=== PATIENT | male | born 1995 | race Caucasian/White ===

== ENCOUNTER 2018-01-11 19:52 | Emergency (ER) | payer BC ==
[2018-01-11 19:57] VITALS: TEMP 99.1; O2SAT 95
[2018-01-11] MEDS ORDERED: HYOSCYAMINE SULFATE 0.125 MG TAB PO ONE (20:03)
[2018-01-11] MEDS ORDERED: FAMOTIDINE 20 MG TAB PO ONE (20:03)
[2018-01-11] MEDS ORDERED: LIDOCAINE 2% VISCOUS 15 ML UDCUP PO ONE (20:03)
[2018-01-11] MEDS ORDERED: NS 1,000 ML IV ONE ×2 (20:03)
[2018-01-11] MEDS ORDERED: MAG HYDROX/AL HYDROX/SIMETH 30 ML UDCUP PO ONE (20:03)
[2018-01-11] MEDS ORDERED: ONDANSETRON 4 MG/2 ML VIAL IVP ONE (20:03)
--- NOTE | 2018-01-11 20:03 | EDPHY ---
H & P Stated Complaint: c/o n/v x 1 day Source: Patient Exam Limitations: No limitations - Medical/Surgical History Hx Asthma: No Hx Chronic Respiratory Disease: No Hx Diabetes: No Hx Cardiac Disease: No Hx Renal Disease: No Hx Cirrhosis: No Hx Alcoholism: No Hx HIV/AIDS: No Hx Splenectomy or Spleen Trauma: No Other PMH: DENIES - Social History Smoking Status: Never smoked Time Seen by Provider: 01/11/18 20:03 HPI/ROS: HPI: This is a 22-year-old male who presents with Chief Complaint: c/o n/v x 1 day Location: Epigastric Quality: Nausea vomiting Duration: 1 day Signs and Symptoms: no fever, + nausea, + vomiting, no hematemesis, no blood in stool, no abdominal bloating, no diarrhea, no back pain, no urinary symptoms, no testicular/groin pain, no indigestion, no chest pain, no shortness of breath Timing: Worse today, occurring over the last year Severity: [id number] Context: Patient is generally healthy, presents with complaints of sudden onset starting this morning of nausea and vomiting times 10 today but denies any abdominal pain, diarrhea,fever. Patient reports that he has been having "stomach issues" over the last year has been seen at work [employer] with preliminary lab work. He drinks alcohol approximately 3 to 4 times a week but only has 1 or 2 beers each day. He denies regular NSAID use. He became concerned today as last time he vomited he has some blood streaks bile colored fluid. Denies any early satiety/food intolerance/abdominal pain/diarrhea/fever/ urinary symptoms. Patient reports that almost daily he feels nauseous over the last year. Does not believe he had any food borne illness. Modifying Factors: None Comment: ROS: see HPI Constitutional: No fever, no chills, no weight loss Eyes: No blurred vision Respiratory: No shortness of breath, no cough Cardiovascular: No chest pain, no palpitations Gastrointestinal: + nausea, + vomiting, no diarrhea, no hematemesis, no blood in stool Genitourinary: No dysuria, no blood in urine Extremities: No myalgias, no edema Neurologic: No weakness, no numbness Skin: No rashes, no petechiae Hematologic: No bruising, no bleeding MEDICAL/SURGICAL/SOCIAL HISTORY: Medical history: Generally healthy. Does not take any regular medications. Surgical history: Denies Social history: Student. CONSTITUTIONAL: Extremely pleasant non toxic appearing young adult white male, awake and alert, no obvious distress HEENT: Atraumatic and normocephalic, PERRL, EOMI. Tympanic membranes clear. Oropharynx clear, no exudate and moist pink mucosa. Airway patent. No lymphadenopathy. No meningismus. Cardiovascular: Normal S1/S2, tachycardia, regular rhythm, without murmur rub or gallop. PULMONARY/CHEST: Symmetrical and nontender. Clear to auscultation bilaterally. Good air movement. No accessory muscle usage. ABDOMEN: Soft, nondistended, mild right upper quadrant tenderness to deep palpation, no rebound, no guarding, no peritoneal signs, no masses or organomegaly. No CVAT. Bowel sounds normoactive x4. EXTREMITIES: 2/2 pulses, strength 5/5, no deformities, no clubbing, no cyanosis or edema. NEUROLOGICAL: no focal neuro deficits. GCS 15. SKIN: Warm and dry, no erythema. no rash. Good capillary refill. (Sharon Quiñonez) Constitutional: Initial Vital Signs Temperature (C) 37.3 C 01/11/18 19:55 Heart Rate 121 H 01/11/18 19:55 Respiratory Rate 18 01/11/18 19:55 Blood Pressure 156/106 H 01/11/18 19:55 O2 Sat (%) 95 01/11/18 19:55 O2 Delivery Mode Room Air Allergies/Adverse Reactions: No Known Allergies Allergy (Verified 01/11/18 19:57) Home Medications: Medication Instructions Recorded Ondansetron Odt [Zofran Odt 4 mg 4 mg PO Q4 PRN #12 tab 01/11/18 (*)] Pantoprazole Sodium [Protonix 40mg 40 mg PO BID #28 tab 01/11/18 (*)] Medical Decision Making - Diagnostics Imaging Results: Imaging Impressions Abdomen Ultrasound 01/11/18 20:08 Impression: 1. Tiny benign gallbladder polyps. 2. No cholelithiasis or biliary ductal dilation. Findings and recommendations discussed with Emergency Department physician, Sharon Quiñonez PA-C at 2045 hours on January 11, 2018. Final report concurs with initial preliminary interpretation. ED Course/Re-evaluation: The patient was evaluated and managed by the physician assistant teacher. I have reviewed this chart and I agree with the findings and plan of care as documented , as indicated by my signature. I am the secondary supervising physician. ( Keerthi Suarez) Labs, IV fluids, IV medications and oral medications, right upper quadrant ultrasound ordered Patient had mild right upper quadrant tenderness to deep palpation; will evaluate for gallbladder disease Suspect peptic ulcer disease versus gastritis versus H pylori infection; will benefit from GI follow up outpatient with EGD. No concern for esophageal varices or free air/perforation. Abdominal exam is soft and nontender. Doubt surgical abdomen. Given 2 L normal saline, IV Zofran, GI cocktail, Pepcid 2045: Called by Radiology who advised that right upper quadrant ultrasound only shows 2 mm polyp. No signs of cholelithiasis/cholecystitis/ choledocholithiasis/sludge. Reassessed patient who reports that nausea has resolved. No episodes of vomiting while in the emergency room. Passed p.o. Trial prior to discharge. Patient will be discharged home with PPI/antiemetics and GI follow-up for EGD This patient was seen under the supervision of my secondary supervising physician. I evaluated care for this patient independently. (Sharon Quiñonez) Differential Diagnosis: Abdominal pain including but not limited to appendicitis, cholecystitis, gastritis and urinary tract infection. (Sharon Quiñonez) - Data Points Laboratory Results: Laboratory Results 01/11/18 20:13 01/11/18 20:13 01/11/18 01/11/18 20:13 20:13 WBC 8.90 10^3/uL 10^3/uL (3.80-9.50) RBC 5.50 10^6/uL 10^6/uL (4.40-6.38) Hgb 16.8 g/dL g/dL (13.7-17.5) Hct 47.9 % % (40.0-51.0) MCV 87.1 fL fL (81.5-99.8) MCH 30.5 pg pg (27.9-34.1) MCHC 35.1 g/dL g/dL (32.4-36.7) RDW 12.9 % % (11.5-15.2) Plt Count 256 10^3/uL 10^3/uL (150-400) MPV 8.8 fL fL (8.7-11.7) Neut % (Auto) 61.1 % % (39.3-74.2) Lymph % (Auto) 28.4 % % (15.0-45.0) [place] % (Auto) 9.2 % % (4.5-13.0) Eos % (Auto) 0.3 % L % (0.6-7.6) Baso % (Auto) 0.8 % % (0.3-1.7) Nucleat RBC Rel Count 0.0 % % (0.0-0.2) Absolute Neuts (auto) 5.43 10^3/uL 10^3/uL (1.70-6.50) Absolute Lymphs (auto) 2.53 10^3/uL 10^3/uL (1.00-3.00) Absolute Monos (auto) 0.82 10^3/uL H 10^3/uL (0.30-0.80) Absolute Eos (auto) 0.03 10^3/uL 10^3/uL (0.03-0.40) Absolute Basos (auto) 0.07 10^3/uL 10^3/uL (0.02-0.10) Absolute Nucleated RBC 0.00 10^3/uL 10^3/uL (0-0.01) Immature Gran % 0.2 % % (0.0-1.1) Immature Gran # 0.02 10^3/uL 10^3/uL (0.00-0.10) Sodium 141 mEq/L mEq/L (135-145) Potassium 4.1 mEq/L mEq/L (3.5-5.2) Chloride 104 mEq/L mEq/L (97-110) Carbon Dioxide 22 mEq/l mEq/l (22-31) Anion Gap 15 mEq/L mEq/L (8-16) BUN 10 mg/dL mg/dL (7-23) Creatinine 0.9 mg/dL mg/dL (0.7-1.3) Estimated GFR > 60 Glucose 101 mg/dL H mg/dL (70-100) Calcium 10.5 mg/dL H mg/dL (8.5-10.4) Total Bilirubin 2.0 mg/dL H mg/dL (0.1-1.4) Conjugated Bilirubin 0.5 mg/dL mg/dL (0.0-0.5) Unconjugated Bilirubin 1.5 mg/dL H mg/dL (0.0-1.1) AST 28 IU/L IU/L (17-59) ALT 40 IU/L IU/L (21-72) Alkaline Phosphatase 74 IU/L IU/L (38-126) Total Protein 8.2 g/dL g/dL (6.3-8.2) Albumin 5.1 g/dL H g/dL (3.5-5.0) Lipase 71 IU/L IU/L (23-300) Medications Given: Discontinued Medications Al Hydroxide/Mg Hydroxide (Maalox Susp) 30 ml PO ONCE ONE Stop: 01/11/18 20:04 Last Admin: 01/11/18 20:16 Dose: 30 ml Famotidine (Pepcid) 20 mg PO EDNOW ONE Stop: 01/11/18 20:04 Last Admin: 01/11/18 20:16 Dose: 20 mg Hyoscyamine Sulfate (Levsin, Hyomax-Sl) 0.25 mg PO ONCE ONE Stop: 01/11/18 20:04 Last Admin: 01/11/18 20:16 Dose: 0.25 mg Sodium Chloride (Ns) 1,000 mls @ 0 mls/hr IV EDNOW ONE; Wide Open PRN Reason: Protocol Stop: 01/11/18 20:04 Last Admin: 01/11/18 20:13 Dose: 1,000 mls Sodium Chloride (Ns) 1,000 mls @ 0 mls/hr IV EDNOW ONE; Wide Open PRN Reason: Protocol Stop: 01/11/18 20:04 Last Admin: 01/11/18 20:27 Dose: 1,000 mls Lidocaine (Lidocaine 2% Viscous) 15 ml PO ONCE ONE Stop: 01/11/18 20:04 Last Admin: 01/11/18 20:16 Dose: 15 ml Ondansetron HCl (Zofran) 4 mg IVP EDNOW ONE Stop: 01/11/18 20:04 Last Admin: 01/11/18 20:16 Dose: 4 mg Ondansetron HCl (Zofran Odt 4 Mg Prepack#2) 1 btl TAKEHOME EDNOW ONE Stop: 01/11/18 20:55 Last Admin: 01/11/18 21:02 Dose: 1 btl Departure - Departure Disposition: Home, Routine, Self-Care Clinical Impression: Peptic ulcer disease Condition: Good Instructions: Peptic Ulcer (ED), Gastritis (ED), Diet for Stomach Ulcers and Gastritis (ED) Additional Instructions: Consume a minimum of 8-10 glasses of water or electrolyte fluid replacement drinks that include Gatorade, Powerade, Pedialyte. Eat a bland diet for the next 48 hours and then slowly advance as tolerated. Take Zofran 1 tab every 4 hours as needed for nausea, vomiting. Start taking Protonix 40 mg twice daily x2 weeks and then once daily thereafter. Refrain from drinking alcohol as this can make your symptoms worse. Follow a peptic ulcer or gastritis diet. Make an appointment to follow up with Gastroenterology in the next 2-3 weeks to discuss candidacy for an EGD outpatient. Return to the Emergency Room if symptoms do not resolve in the next 48-72 hours , you spike a fever > 102 F, or experience intractable abdominal pain/nausea/ vomiting. Referrals: [facility] [Clinic] - As per Instructions Joyce Minor MD [Medical Doctor] - As per Instructions Prescriptions: Ondansetron Odt [Zofran Odt 4 mg (*)] 4 mg PO Q4 PRN #12 tab PRN Reason: Nausea/Vomiting, Use 1st Pantoprazole Sodium [Protonix 40mg (*)] 40 mg PO BID #28 tab
[2018-01-11 20:26] LABS: PLATELET COUNT 256 10^3/uL (150-400)
[2018-01-11] MEDS ORDERED: ONDANSETRON 4MG PREPACK#2 BTL TAKEHOME ONE (20:54)
[2018-01-11 21:06] VITALS: BP 131/94; PULSE 89; RESP 16
== END 2018-01-11 21:07 | disposition home or self-care (01) ==
DX: K27.9 Peptic ulcer, site unspecified, unspecified as acute or chronic, without hemorrhage or perforation (principal); E86.9 Volume depletion, unspecified
CPT/HCPCS: 96374; J2405

== ENCOUNTER → 2018-02-09 | Outpatient (CLI) | payer BC | LOC: FIMAGING 08:40 | PROVIDERS: ATTEND Physician Assistant | DX: R11.2 Nausea with vomiting, unspecified (principal); K44.9 Diaphragmatic hernia without obstruction or gangrene ==

== ENCOUNTER → 2018-02-13 | Outpatient (CLI) | payer BC | LOC: FIMAGING 07:56 | PROVIDERS: ATTEND Physician Assistant | DX: R11.2 Nausea with vomiting, unspecified (principal) | CPT/HCPCS: A9537 ==

== ENCOUNTER 2018-03-20 08:12 | Day surgery (SDC) | payer BC ==
[2018-03-20] MEDS ORDERED: cefOXitin SODIUM 2 GM in STERILE WATER INJ 21 ML IV ONE (08:47)
[2018-03-20] MEDS ORDERED: HEPARIN 1000 UNIT/1 ML MDV ONE (08:53)
[2018-03-20] MEDS ORDERED: BUPIVACAINE 0.5% 30 ML SDV ONE (08:53)
[2018-03-20] MEDS ORDERED: ceFAZolin 1 GM/5 ML SYR ONE (08:54)
[2018-03-20] MEDS ORDERED: LR 1,000 ML IV ONE (09:34)
--- NOTE | 2018-03-20 09:50 | PDHPUP ---
History & Physical Update H&P update statement: This history and physical update is based on an assessment of the patient which was completed after admission or registration (within 24 hours), but prior to the surgery/procedure. H&P update: H&P reviewed & patient examined, no change in patient's condition since H&P completed
[2018-03-20] MEDS ORDERED: MIDAZOLAM 2 MG/2 ML VIAL IVP ONE (09:58)
--- NOTE | 2018-03-20 10:01 | PDANEPAE ---
ANE History of Present Illness 22 yo with cholecystis ANE Past Medical History - Cardiovascular History Hx Hypertension: No Hx Arrhythmias: No Hx Chest Pain: No Hx Coronary Artery / Peripheral Vascular Disease: No Hx CHF / Valvular Disease: No Hx Palpitations: No - Pulmonary History Hx COPD: No Hx Asthma/Reactive Airway Disease: No Hx Recent Upper Respiratory Infection: No Hx Oxygen in Use at Home: No Hx Sleep Apnea: No Sleep Apnea Screening Result - Last Documented: Negative - Neurologic History Hx Cerebrovascular Accident: No Hx Seizures: No Hx Dementia: No - Endocrine History Hx Diabetes: No - Renal History Hx Renal Disorders: No - Liver History Hx Hepatic Disorders: No - Neurological & Psychiatric Hx Hx Neurological and Psychiatric Disorders: Yes Neurological / Psychiatric History Comment: hx guilliame barre - Cancer History Hx Cancer: No - Congenital Disorder History Hx Congenital Disorders: No - GI History Hx Gastrointestinal Disorders: Yes Gastrointestinal History Comment: nausea/vomiting, abd pain right and upper back - Other Health History Other Health History: none - Chronic Pain History Chronic Pain: No - Surgical History Prior Surgeries: none ANE Review of Systems Review of systems is: negative Review of Systems: - Exercise capacity METS (RN): 5 METS ANE Patient History - Allergies Allergies/Adverse Reactions: No Known Allergies Allergy (Verified 03/17/18 12:11) - Home Medications Home Medications: Gabapentin 03/17/18 [Last Taken Unknown] Ondansetron Odt [Zofran Odt 4 mg (*)] 03/17/18 [Last Taken Unknown] - NPO status NPO Status: no food or drink >8 hours NPO Since - Liquids (Date): 03/19/18 NPO Since - Liquids (Time): 00:00 NPO Since - Solids (Date): 03/19/18 NPO Since - Solids (Time): 00:00 - Smoking Hx Smoking Status: Never smoked - Family Anes Hx Family Hx Anesthesia Complications: none ANE Labs/Vital Signs - Vital Signs Blood Pressure: 115/76 Heart Rate: 67 Respiratory Rate: 16 O2 Sat (%): 94 Height: 170.18 cm Weight: 61.235 kg ANE Physical Exam - Airway Neck exam: FROM Mallampati Score: Class 1 Mouth exam: normal dental/mouth exam - Pulmonary Pulmonary: no respiratory distress - Cardiovascular Cardiovascular: regular rate and rhythym - ASA Status ASA Status: II ANE Anesthesia Plan Anesthesia Plan: general endotracheal anesthesia
[2018-03-20] MEDS ORDERED: PROPOFOL 200 MG/20 ML VIAL ONE (10:19)
[2018-03-20] MEDS ORDERED: fentaNYL 250 MCG/5 ML INJ ONE (10:19)
[2018-03-20] MEDS ORDERED: PROMETHAZINE HCL 25 MG/ML INJ IVP PRN (10:48)
[2018-03-20] MEDS ORDERED: NALOXONE HCL 0.4 MG/ML INJ IVP PRN (10:48)
[2018-03-20] MEDS ORDERED: oxyCODONE IR 5 MG TAB PO PRN (10:48)
[2018-03-20] MEDS ORDERED: HYDROmorphONE/DILAUDID 2 MG/ML INJ IVP PRN (10:48)
[2018-03-20] MEDS ORDERED: ONDANSETRON 4 MG/2 ML VIAL IVP PRN (10:48)
--- NOTE | 2018-03-20 11:09 | POSTOPPROG ---
Post Op Note Date of Operation: 03/20/18 Surgeon: Enrico Lou Remote Control Assembler: Irvin Anesthesiologist: Warm Anesthesia: GET(General Endotracheal) Pre-op Diagnosis: Gall Bladder polyps Post-op Diagnosis: same Indication: pain Procedure: Lap nya Findings: Polyps. No inflammation or stones. Inf/Abcess present in the surg proc area at time of surgery?: No Depth: Organ Space EBL: Minimal Specimen(s): Gall Bladder
[2018-03-20] MEDS ORDERED: fentaNYL 100 MCG/2 ML INJ ONE (11:14)
[2018-03-20] MEDS: fentaNYL 100 MCG/2 ML INJ IVP PRN ×2 (11:15→11:25)
--- NOTE | 2018-03-20 11:15 | POSTANESTH ---
Post Anesthetic Evaluation Cardiovascular Status: Normal, Stable Respiratory Status: Normal, Stable Level of Consciousness/Mental Status: Can Participate in Eval Pain Control: Inadeq, Add Tx Required Nausea/Vomiting Control: Adequate, Prn Tx Ordered Complications Possibly Related to Anesthesia: None Noted
[2018-03-20] MEDS ORDERED: HYDROmorphONE/DILAUDID 2 MG/ML INJ ONE (11:38)
[2018-03-20] MEDS ORDERED: HYDROCODONE/APAP 5/325 TAB ONE ×2 (11:58→12:46)
[2018-03-20] MEDS: HYDROCODONE/APAP 5/325 TAB PO PRN ×2 (11:59→12:47)
[2018-03-20 13:33] VITALS: BP 107/71
--- NOTE | 2018-03-29 04:51 | GOP ---
[f rep st] OPERATIVE REPORT DATE OF OPERATION: SURGEON: Enrico Lou MD BODY COMPONENT ENGINEER: Sharon Bryan, nurse practitioner. ANESTHESIOLOGIST: Dr. Mckeon. PREOPERATIVE DIAGNOSIS: Right upper quadrant pain and gallbladder polyps. POSTOPERATIVE DIAGNOSIS: Right upper quadrant pain and gallbladder polyps. PROCEDURE PERFORMED: Laparoscopic cholecystectomy. FINDINGS: The patient was found to have a noninflamed gallbladder containing multiple small mucosal polyps and no stones. DESCRIPTION OF PROCEDURE: The patient was taken to the operating room where he received satisfactory general endotracheal anesthesia by Dr. Mckeon. He was placed in the supine position, prepped and drap ed in the usual sterile fashion. A periumbilical incision was made. A Veress needle inserted. Pneu moperitoneum was established. Trocar was introduced. Good visualization was obtained. Three other trocars placed in the upper abdomen under direct vision. The gallbladder was elevated up. It was no t particularly inflamed. Adhesions were taken down. The cystic triangle was carefully exposed. The cystic duct and cystic artery were dissected free. A good clear view was obtained. There were both multiply hemoclipped and divided with care to avoid injury to the common duct, which was clearly vis ualized. The peritoneum around the gallbladder was incised and the gallbladder was dissected free fr om the bed of the hepatic fossa and extracted through the upper midline port site. Hemostasis was as sured. The wound was irrigated. Trocars were removed under direct vision. Trocar sites were closed with 0 Vicryl for the fascia, 4-0 Monocryl subcuticular stitch for the skin and all layers infiltrat ed with 0.5% Marcaine. Blood loss was negligible. He was taken to the recovery room in good conditio n. /[id number]/MODL
== END 2018-03-20 14:35 | disposition home or self-care (01) ==
LOC: FSGY 08:12
PROVIDERS: ATTEND Surgery
PROC: 0FT44ZZ Resection of Gallbladder, Percutaneous Endoscopic Approach (ICD-10-PCS; principal; 2018-03-20 09:30)
DX: K82.4 Cholesterolosis of gallbladder (principal); K59.00 Constipation, unspecified; G61.0 Guillain-Barre syndrome
CPT/HCPCS: J0694; J1170; J2250; J2704; J3010

== ENCOUNTER 2018-08-30 08:40 | Emergency (ER) | payer BC ==
[2018-08-30] MEDS ORDERED: NS 1,000 ML IV ONE ×2 (08:56→09:56)
[2018-08-30] MEDS ORDERED: PROMETHAZINE HCL 25 MG/ML INJ IVP ONE (09:02)
--- NOTE | 2018-08-30 09:02 | EDPHY ---
H & P Stated Complaint: N/V/D gen abd pain since last night Time Seen by Provider: 08/30/18 08:55 HPI/ROS: HPI: This is a 22-year-old male who presents with Chief Complaint: N/V/D gen abd pain since last night Location: Abdomen Quality: Cramping, nausea, vomiting, diarrhea Duration: Since 1 or 2:00 a.m. This morning Signs and Symptoms: no fever, no nausea, no vomiting, no hematemesis, no blood in stool, no abdominal bloating, no diarrhea, no back pain, no urinary symptoms , no testicular/groin pain, no indigestion, no chest pain, no shortness of breath Timing: Severity: Context: Patient has a history of chronic nausea and vomiting, history of cholecystectomy in March 2018 with improvement in his chronic nausea and vomiting. He presents today with complaints of waking up around 1 or 2:00 a.m. This morning feeling nauseous and subjective fever. He reports that he has vomited 3-4 times and has had 3-4 loose stools. No recent antibiotic use, foreign travel, camping or drinking contaminated water. Patient reports that he has abdominal cramping and mild generalized abdominal pain 2/10 prior to emesis. Yesterday he ate a sandwich for lunch and hamburger for dinner. Denies recent or regular marijuana use. Modifying Factors: None Comment: ROS: A comprehensive 10 system review of systems is otherwise negative aside from elements mentioned in the history of present illness. MEDICAL/SURGICAL/SOCIAL HISTORY: Medical history: Exercise-induced asthma. Surgical history: Cholecystectomy March 2018 Social history: Nonsmoker. Family history noncontributory. CONSTITUTIONAL: Nontoxic-appearing young adult white male, awake and alert, no obvious distress HEENT: Atraumatic and normocephalic, PERRL, EOMI. Nares patent; no rhinorrhea; no nasal mucosal edema. Tympanic membranes clear. Oropharynx clear, no exudate and moist pink mucosa. Airway patent. No lymphadenopathy. No meningismus. Cardiovascular: Normal S1/S2, tachycardia, regular rhythm, without murmur rub or gallop. PULMONARY/CHEST: Symmetrical and nontender. Clear to auscultation bilaterally. Good air movement. No accessory muscle usage. ABDOMEN: Soft, nondistended, nontender, no rebound, no guarding, no peritoneal signs, no masses or organomegaly. No CVAT. EXTREMITIES: 2/2 pulses, strength 5/5, no deformities, no clubbing, no cyanosis or edema. NEUROLOGICAL: no focal neuro deficits. GCS 15. SKIN: Warm and dry, no erythema. no rash. Good capillary refill. Source: Patient Exam Limitations: No limitations - Medical/Surgical History Hx Asthma: No Hx Chronic Respiratory Disease: No Hx Diabetes: No Hx Cardiac Disease: No Hx Renal Disease: No Hx Cirrhosis: No Hx Alcoholism: No Hx HIV/AIDS: No Hx Splenectomy or Spleen Trauma: No Other PMH: exercise induced asthma - Social History Smoking Status: Never smoked Constitutional: Initial Vital Signs Temperature (C) 36.7 C 08/30/18 08:43 Heart Rate 130 H 08/30/18 08:43 Respiratory Rate 16 08/30/18 08:43 Blood Pressure 125/90 H 08/30/18 08:43 O2 Sat (%) 97 08/30/18 08:43 O2 Delivery Mode Room Air Allergies/Adverse Reactions: No Known Allergies Allergy (Verified 03/17/18 12:11) Home Medications: Medication Instructions Recorded Albuterol 08/30/18 Gabapentin 08/30/18 Ondansetron Odt [Zofran Odt 4 mg 4 mg PO Q4 PRN #12 tab 08/30/18 (*)] Promethazine HCl [Phenergan 25mg 25 mg PO Q6 PRN #10 tab 08/30/18 (*)] Medical Decision Making ED Course/Re-evaluation: Vital signs reviewed and show tachycardia. I suspect this is related to pre renal mild dehydration. Laboratory studies, IV fluids, IV medications ordered Abdomen is soft and nontender. Doubt surgical process. No imaging indicated at this time. Given 1 L normal saline and IV promethazine 12.5 mg 0945: Labs reviewed. No signs of electrolyte imbalance, acute kidney injury. T bili 1.6, unconjugated bili 1.3-mildly elevated likely due to vomiting, creatinine 0.9, anion gap 16. 0955: Reassessed patient who reports 40% improvement in nausea. Heart rate now 100-110s. Given 1 L normal saline and IV Zofran. 1050: Reassessed patient who reports 75% relief of symptoms. Heart rate now in the 90s. Passed p.o. Trial prior to discharge. Abdomen remains soft and nontender. Given prescription for Zofran and promethazine. Politely declined work note. This patient was seen under the supervision of my secondary supervising physician. I evaluated care for this patient independently. Discussed this patient with Dr. George. Differential Diagnosis: Abdominal pain including but not limited to appendicitis, cholecystitis, gastritis and urinary tract infection. - Data Points Laboratory Results: Laboratory Results 08/30/18 08:55 10 08:55 Sodium 140 mEq/L mEq/L (135-145) Potassium 4.5 mEq/L mEq/L (3.3-5.0) Chloride 105 mEq/L mEq/L (97-110) Carbon Dioxide 19 mEq/l L mEq/l (22-31) Anion Gap 16 mEq/L H mEq/L (6-14) BUN 22 mg/dL mg/dL (7-23) Creatinine 0.9 mg/dL mg/dL (0.7-1.3) Estimated GFR > 60 Glucose 110 mg/dL H mg/dL (70-100) Calcium 10.3 mg/dL mg/dL (8.5-10.4) Total Bilirubin 1.6 mg/dL H mg/dL (0.1-1.4) Conjugated Bilirubin 0.3 mg/dL mg/dL (0.0-0.5) Unconjugated Bilirubin 1.3 mg/dL H mg/dL (0.0-1.1) AST 30 IU/L IU/L (17-59) ALT 35 IU/L IU/L (21-72) Alkaline Phosphatase 72 IU/L IU/L (38-126) Total Protein 7.8 g/dL g/dL (6.3-8.2) Albumin 4.9 g/dL g/dL (3.5-5.0) Lipase 131 IU/L IU/L (23-300) Medications Given: Discontinued Medications Sodium Chloride (Ns) 1,000 mls @ 0 mls/hr IV ONCE ONE PRN Reason: Wide Open Stop: 08/30/18 08:57 Last Admin: 08/30/18 08:57 Dose: 1,000 mls Sodium Chloride (Ns) 1,000 mls @ 0 mls/hr IV EDNOW ONE; Wide Open PRN Reason: Protocol Stop: 08/30/18 09:57 Last Admin: 08/30/18 09:57 Dose: 1,000 mls Ondansetron HCl (Zofran) 4 mg IVP EDNOW ONE Stop: 08/30/18 09:57 Last Admin: 08/30/18 09:58 Dose: 4 mg Promethazine HCl (Phenergan) 12.5 mg IVP EDNOW ONE Stop: 08/30/18 09:03 Last Admin: 08/30/18 09:10 Dose: 12.5 mg Departure - Departure Disposition: Home, Routine, Self-Care Clinical Impression: Gastroenteritis Condition: Good Instructions: Gastroenteritis (ED) Additional Instructions: Consume a minimum of 8-10 glasses of water or electrolyte fluid replacement drinks that include Gatorade, Powerade, Pedialyte. Eat a bland diet for the next 48 hours and then slowly advance as tolerated. Take Zofran 1 tab every 4 hours as needed for nausea, vomiting. Take promethazine 1 tab every 6 hr as needed for nausea and vomiting not relieved by Zofran. Return to the Emergency Room if symptoms do not resolve in the next 48-72 hours , you spike a fever > 102 F, or experience intractable abdominal pain/nausea/ vomiting. Referrals: [facility],. [Clinic] - 5-7 days, if not improved Prescriptions: Ondansetron Odt [Zofran Odt 4 mg (*)] 4 mg PO Q4 PRN #12 tab PRN Reason: Nausea/Vomiting, Use 1st Promethazine HCl [Phenergan 25mg (*)] 25 mg PO Q6 PRN #10 tab PRN Reason: Nausea/Vomiting, Use 2nd
[2018-08-30] MEDS ORDERED: ONDANSETRON 4 MG/2 ML VIAL ONE (09:54)
[2018-08-30] MEDS ORDERED: ONDANSETRON 4 MG/2 ML VIAL IVP ONE (09:56)
[2018-08-30 10:49] VITALS: BP 106/81
== END 2018-08-30 11:04 | disposition home or self-care (01) ==
DX: K52.9 Noninfective gastroenteritis and colitis, unspecified (principal); E86.9 Volume depletion, unspecified; Z90.49 Acquired absence of other specified parts of digestive tract
CPT/HCPCS: 96374; J2405; J2550